=== PATIENT | male | born 1985 | race Caucasian/White ===

== ENCOUNTER 2018-08-16 12:48 | Emergency (ER) | payer MEDICAID ==
[2018-08-16 13:14] VITALS: Ht 170.2 cm
[2018-08-16 16:24] VITALS: BP 123/87
== END 2018-08-16 16:24 | disposition home or self-care (01) ==
LOC: ED 12:48
DX: R07.0 Pain in throat (principal)

== ENCOUNTER 2020-01-08 17:18 | Emergency (ER) | payer SELFPAY ==
[~2020-01-08] VITALS: Ht 167.6 cm; Wt 79.4 kg
[2020-01-08 17:24] VITALS: Ht 167.6 cm; Wt 79.4 kg
[2020-01-08 17:49] VITALS: BP 128/68
== END 2020-01-08 17:49 | disposition home or self-care (01) ==
LOC: ED 17:18
DX: B34.9 Viral infection, unspecified (principal); R10.30 Lower abdominal pain, unspecified